=== PATIENT | male | born 1995 | race Caucasian/White ===

== ENCOUNTER 2017-05-20 13:39 | Emergency (ER) | payer OTHER ==
[~2017-05-20] VITALS: Ht 172.7 cm; Wt 67.5 kg
[2017-05-20 13:50] VITALS: Ht 172.7 cm; Wt 67.5 kg
[2017-05-20] MEDS ORDERED: BEN25 PO (14:21)
--- NOTE | 2017-05-20 14:37 | ERD ---
ER Documentation Chief Complaint Chief Complaint GENERALIZED BODY RASH WITH FACIAL SWELLING AFTER EATING LUNCH HPI Patient presents one hour status post allergic reaction. Patient lunch which consisted of a salad. Patient has had this salad before without allergic reaction. Has not taken any medications to relieve the symptoms. States that the rash has mostly resolved. States that the rash was on his neck and face and upper arms. Denies identifiable environmental trigger, fever, cough, dyspnea, dysphagia, drooling or change in voice. Medical history and nursing notes have been reviewed and are consistent with patients history. ROS All systems reviewed and are negative except as per history of present illness. Medications Home Meds Active Scripts Diphenhydramine Hcl* (Benadryl*) 25 Mg Cap, 25 MG PO Q6, #30 CAP Prov:RESHMA BLACKWELL PA-C 05/20/17 Allergies Allergies: Coded Allergies: No Known Allergy (Unverified , 05/20/17) PMhx/Soc History of Surgery: No Anesthesia Reaction: No Hx Neurological Disorder: No Hx Respiratory Disorders: No Hx Cardiac Disorders: No Hx Psychiatric Problems: No Hx Miscellaneous Medical Probl: No Hx Alcohol Use: No Hx Substance Use: Yes (MARIJUANA) Hx Tobacco Use: No Smoking Status: Never smoker Physical Exam Vitals Vital Signs Date Time Temp Pulse Resp B/P Pulse Ox O2 Delivery O2 Flow Rate FiO2 05/20/17 13:50 98.5 73 18 155/95 98 Physical Exam Const: Healthy-appearing. Well-nourished. Well-developed. No acute distress. Skin: Mild erythematous rash on the upper inner arms.. No petechiae, ulcer, induration, or jaundice. Good turgor. Pulm: Good air movement. No rhonchi, wheezes or crackles in all lobes bilaterally auscultated. No abnormal tympani or dullness on percussion in all lobes bilaterally. Equal and appropriate lung expansion. No abnormal tactile fremitus palpated. No retractions, stridor, tripoding or drooling. Oral: No oral edema or lesions visualized. Mucous membranes moist and pink. Neck: No cervical lymphadenopathy, masses or goiter palpated. Trachea midline. Supple ~ No meningismus. Head: Normocephalic, Atraumatic. Eyes: Non-injected; No scleral erythema, discharge or foreign body. EOMI and DHRUV bilaterally. Ears: Normal External Ears, EACs clear, TM normal bilaterally without erythema. Nose: Normal nose without discharge, septal deviation, or sinus tenderness. Cardio: Regular rate and rhythm; No murmurs, gallops or rubs auscultated. No JVD grossly observed. Radial and posterior tibial pulses 2+ bilaterally. No cyanosis. Capillary refill less than 2 seconds. Abd: Soft, non tender, non distended. No guarding, masses. Normal bowel sounds. No McBurney's point tenderness. MS: Normal motor strength, normal tone with gross examination. Back: No midline, flank or CVA tenderness. Ext: No cyanosis, edema or palpable cord. Normal movement of all extremities grossly observed. Neur: Awake, alert and oriented x3. Neurovascularly intact bilaterally. Psych: Normal Mood and Affect. Procedures/MDM Patient is being worked up and evaluated for acute rash as described in the history and physical exam. No treatment in the emergency department indicated at this time. The most likely diagnosis is acute allergic reaction/urticaria due to unspecified trigger. The treatment plan will thus include Benadryl. EpiPen not indicated at this time. At this time, I have little suspicion for vasculitis, erythema multiforme, contact dermatitis, or erythema migrans / lyme disease. I no longer have suspicion for endangerment of the airway. I have spoke with the patient regarding their condition and future management. They have verbally responded that they understand their status and treatment plan. The patients vitals are stable, and their current condition is appropriate for discharge. The patient will be given discharge instructions with return precautions. Departure Diagnosis: Primary Impression: Rash and other nonspecific skin eruption Condition: Stable Patient Instructions: Controlling Your Triggers: Allergens Additional Instructions: Follow up with your PCP within the next 1-3 days for a more thorough evaluation and a possible referral to a specialist. Return the the emergency department immediately if symptoms worsen or change. If you have any questions regarding medications, ask your pharmacist or us before you leave. If any adverse reactions occur while taking your medications, discontinue the treatment and return to the emergency department immediately. Take your medications as directed, and complete the entire course of treatment. RESHMA BLACKWELL PA-C May 20, 2017 14:37
== END 2017-05-20 14:29 | disposition home or self-care (01) ==
LOC: FTE 13:39
DX: R21 Rash and other nonspecific skin eruption (principal)
CPT/HCPCS: 99283